=== PATIENT | female | born 1955 | race African-American/Black ===

== ENCOUNTER 2025-04-06 06:16 | Emergency (ER) | payer MEDICARE ==
[2025-04-06 06:41] LABS: Glucose, Urine (Dipstick) Normal (Negative); Leukocyte 500 (Negative); Protein, Urine (Dipstick) Negative (Neg-Trace); Specific Gravity, Urine 1.010 (1.005-1.030)
[2025-04-06] MEDS ORDERED: Ketorolac Tromethamine 30 MG (1 mL) VIAL ONE (06:50)
[2025-04-06 07:53] LABS: Bacteria/HPF 2+ HPF (None Seen); CAUTI Indications for Culture Pelvic or flank pain; Urine Culture Reflex Yes Yes; WBC/HPF 21-50 HPF (0-3)
== END 2025-04-06 07:20 | disposition home or self-care (01) ==
LOC: CSHERS 06:16
DX: M54.42 Lumbago with sciatica, left side (principal); I10 Essential (primary) hypertension; F17.210 Nicotine dependence, cigarettes, uncomplicated
CPT/HCPCS: 81001; 87086; 96372; 99283; J1885